=== PATIENT | male | born 1995 | race Caucasian/White ===

== ENCOUNTER 2017-11-17 21:57 | Emergency (ER) | payer OTHER ==
[2017-11-17] MEDS ORDERED: NS 1,000 ML IV ONE (22:10)
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
[2017-11-17 22:16] LABS: PLATELET COUNT 258 10^3/uL (150-400)
[2017-11-17 23:50] VITALS: BP 112/62
== END 2017-11-18 00:30 | disposition home or self-care (01) ==
DX: F12.129 Cannabis abuse with intoxication, unspecified (principal); E86.9 Volume depletion, unspecified
CPT/HCPCS: 80305; G0480